=== PATIENT | female | born 1985 | race Caucasian/White ===

== ENCOUNTER → 2019-01-02 | Outpatient (CLI) | payer OTHER ==
[~2019-01-02] MED LIST: GADOBUTROL 10 MMOL/10 ML VIAL ONE
== END | disposition home or self-care (01) ==
LOC: CFH 12:55
PROVIDERS: ATTEND Internal Medicine
DX: K70.31 Alcoholic cirrhosis of liver with ascites (principal); R93.5 Abnormal findings on diagnostic imaging of other abdominal regions, including retroperitoneum; R16.2 Hepatomegaly with splenomegaly, not elsewhere classified; Z90.49 Acquired absence of other specified parts of digestive tract
CPT/HCPCS: 74183; A9585

== ENCOUNTER 2019-01-09 21:48 | Emergency (ER) | payer OTHER ==
[~2019-01-09] VITALS: Ht 167.6 cm; Wt 90.8 kg
[2019-01-09 21:48] VITALS: BP 144/86
--- NOTE | 2019-01-09 22:10 | NUR ---
PT IN GOWN IN [facility]. AWAITING ERP. PT ATTACHED TO VS MACHINES. VSS. PT TALKING IN COMPLETE SENTENCES. PT DENIES ANY OTHER NEEDS AT THIS TIME. CALL LIGHT IS WITHIN REACH.
[2019-01-09] MEDS ORDERED: FAMOTIDINE 20 MG TABLET ONE (22:18)
--- NOTE | 2019-01-09 22:24 | NUR ---
PT MEDICATED PER MAR.
[2019-01-09] MEDS ORDERED: FAMOTIDINE 20 MG TABLET PO ONE (22:30)
--- NOTE | 2019-01-09 22:49 | NUR ---
PT D/C WITH D/C SUMMARY AND SCRIPTS. ALL QUESTIONS ANSWERED. PT DENIES ANY OTHER NEEDS PERTAINING TO THIS VISIT. PT AMBULATES TO REGISTRATION DESK WITH STEADY GAIT FOR D/C HOME WITH FRIEND.
== END 2019-01-09 22:53 | disposition home or self-care (01) ==
LOC: ED 22:45
DX: L29.9 Pruritus, unspecified (principal); T78.40XA Allergy, unspecified, initial encounter; L55.0 Sunburn of first degree; L55.1 Sunburn of second degree; X58.XXXA Exposure to other specified factors, initial encounter
CPT/HCPCS: 99283; J7512

== ENCOUNTER 2019-07-30 07:20 | Outpatient (CLI) | payer OTHER | END 2019-07-30 23:59 | disposition home or self-care (01) | LOC: CFH 07:20 | PROVIDERS: ATTEND Internal Medicine | DX: R16.1 Splenomegaly, not elsewhere classified (principal) | CPT/HCPCS: 76700 ==

== ENCOUNTER → 2020-04-07 | Outpatient (CLI) | payer OTHER | END | disposition home or self-care (01) | LOC: CFH 08:01 | PROVIDERS: ATTEND Internal Medicine Gastroenterology | DX: R16.1 Splenomegaly, not elsewhere classified (principal); K74.60 Unspecified cirrhosis of liver; Z90.49 Acquired absence of other specified parts of digestive tract | CPT/HCPCS: 76700 ==

== ENCOUNTER 2020-12-01 10:10 | Day surgery (SDC) | payer OTHER ==
[2020-11-28 09:41] LABS: MICROSCOPIC NOT IND
[2020-11-28 09:46] LABS: BASOPHILS % (AUTO) 1 % (0-1); EOSINOPHILS % (AUTO) 2 % (1-7); LYMPHOCYTES % (AUTO) 27 % (22-44); MEAN CORPUSCULAR HEMOGLOBIN 30.5 pg (27.0-34.8); MEAN CORPUSCULAR HGB CONC 34.9 g/dL (32.4-35.8); MEAN PLATELET VOLUME 8.9 fL (7.4-10.4); MONOCYTES % (AUTO) 6 % (2-9); NEUTROPHILS % (AUTO) 64 % (42-75); PLATELET COUNT 189 x10^3/uL (130-400); RED CELL DISTRIBUTION WIDTH 13.4 % (9.6-15.2)
[2020-11-28 09:47] LABS: MD NO
[2020-11-28 09:52] LABS: ALBUMIN 3.4 g/dL (3.4-5.0); ANION GAP 6 mmol/L (5-15); CALCIUM 8.3 mg/dL (8.5-10.1); CHLORIDE 108 mmol/L (98-107)
[2020-11-28 09:58] LABS: ALANINE AMINOTRANSFERASE 21 U/L (12-78); ALKALINE PHOSPHATASE 66 U/L (45-117); BILIRUBIN,TOTAL 0.4 mg/dL (0.2-1.0); CREATININE 0.61 mg/dL (0.55-1.02); TOTAL PROTEIN 7.2 g/dL (6.4-8.2)
[~2020-12-01] VITALS: Ht 175.3 cm; Wt 108.2 kg
[~2020-12-01 10:10] MED LIST changes: +CHOL10003 PO; +FOLI1TAB32 PO; -GADOBUTROL 10 MMOL/10 ML VIAL ONE; +LISI-167 PO; +LORA10TA75 PO; +OMEP20TA62 PO; +VENL150C PO
[2020-12-01 10:44] VITALS: BP 134/86
[2020-12-01] MEDS ORDERED: CHLORHEXIDINE 15 ML UDC PO ONE (11:00)
[2020-12-01] MEDS ORDERED: LACTATED RINGERS 1,000 ML IV SCH (11:00)
[2020-12-01] MEDS ORDERED: BUPIVACAINE/PF 0.25% ONE (11:02)
[2020-12-01] MEDS ORDERED: SILVER NITRATE STICK TP ONE ×2 (11:02→12:57)
[2020-12-01] MEDS ORDERED: MIDAZOLAM 1 MG/ML, 2ML ONE (11:53)
[2020-12-01] MEDS ORDERED: PROPOFOL 50 ML ONE ×2 (11:53→12:47)
[2020-12-01] MEDS ORDERED: FENTANYL PF 250 MCG/5ML ONE (11:53)
[2020-12-01] MEDS ORDERED: SUCCINYLCHOLINE 20 MG/ML, 10ML ONE (11:58)
[2020-12-01] MEDS ORDERED: KETOROLAC 30 MG/1 ML ONE (11:58)
[2020-12-01] MEDS ORDERED: PROPOFOL 10 MG/ML, 20ML ONE (12:46)
[2020-12-01] MEDS ORDERED: DEXAMETHASONE 4 MG/ML, 5ML ONE (12:46)
[2020-12-01] MEDS ORDERED: ONDANSETRON 2MG/ML, 2ML ONE (12:46)
[2020-12-01] MEDS ORDERED: DIAZEPAM 5 MG/ML, 2ML IVPush PRN (13:30)
[2020-12-01] MEDS ORDERED: HYDROmorphone 1 MG/ML, 1ML INJ IVPush PRN (13:30)
[2020-12-01] MEDS ORDERED: ONDANSETRON 2MG/ML, 2ML IVPush PRN (13:30)
[2020-12-01] MEDS ORDERED: LABETALOL 5MG/ML, 20ML IV PRN (13:30)
[2020-12-01] MEDS ORDERED: ACETAMINOPHEN 325 MG TABLET PO PRN (13:30)
[2020-12-01] MEDS ORDERED: PROMETHAZINE 25 MG/ML, 1ML IVPush PRN (13:30)
[2020-12-01] MEDS ORDERED: OXYcodone 5 MG/5 ML ORAL.SOL UDC PO PRN (13:30)
[2020-12-01] MEDS ORDERED: DIPHENHYDRAMINE 50 MG/ML, 1ML IVPush PRN (13:30)
[2020-12-01] MEDS ORDERED: FENTANYL PF 100 MCG/2ML IV PRN (13:30)
[2020-12-01] MEDS ORDERED: EPHEDRINE 50 MG/ML, 1ML IM PRN (13:30)
[2020-12-01] MEDS ORDERED: EPHEDRINE 50 MG/ML, 1ML IVPush PRN (13:30)
[2020-12-01] MEDS ORDERED: MEPERIDINE/PF 25MG/0.5ML IVPush PRN (13:30)
[2020-12-01] MEDS ORDERED: ACETAMINOPHEN 650 MG/20.3 ML UDC ONE (13:48)
== END 2020-12-01 16:40 | disposition home or self-care (01) ==
LOC: OUT 10:10
PROVIDERS: ATTEND Obstetrics & Gynecology Gynecology
DX: N93.8 Other specified abnormal uterine and vaginal bleeding (principal); N83.292 Other ovarian cyst, left side; D22.71 Melanocytic nevi of right lower limb, including hip; L91.8 Other hypertrophic disorders of the skin; F32.9 Major depressive disorder, single episode, unspecified; E06.3 Autoimmune thyroiditis; I10 Essential (primary) hypertension; J45.909 Unspecified asthma, uncomplicated; Z30.2 Encounter for sterilization; Z88.0 Allergy status to penicillin; Z88.5 Allergy status to narcotic agent; Z98.890 Other specified postprocedural states; Z20.822 Contact with and (suspected) exposure to COVID-19; Z79.899 Other long term (current) drug therapy
CPT/HCPCS: 11200; 36415; 58563; 58670; 80053; 81003; 84702; 85025; 86850; 86900; 88304; 88305; J0330; J1100; J1885; J2250; J2405; J2704; J3010; J7120; U0003